=== PATIENT | male | born 1990 | race African-American/Black ===

== ENCOUNTER 2020-04-25 23:57 | Emergency (ER) | payer SELFPAY ==
--- NOTE | ~2020-04-25 | XR_ITS ---
EXAMINATION: XR chest 2V EXAM DATE: 04/26/2020 02:00 INDICATION: Asthma exacerbation. TECHNIQUE: Frontal and lateral projections of the chest obtained and reviewed. There is no prior yuri dy for comparison. FINDINGS: Some hyperinflation. The lungs are clear. There are no pleural effusions. The cardiomedia stinal silhouette is within normal limits. There is no pneumothorax suspected. The bones and soft t issues are unremarkable. IMPRESSION: 1. No acute cardiopulmonary findings. 2. Hyperinflation. Reviewed, dictated and finalized at location A.
--- NOTE | 2020-04-25 23:47 | ED.ASTHMA ---
HPI - Asthma General Chief Complaint: Asthma Stated Complaint: asthma Source: patient and EMS Mode of arrival: EMS Limitations: no limitations History of Present Illness HPI Narrative: Patient is a 30-year-old male with a history of asthma who presents for evaluation of shortness of breath. Patient states he began having an asthma attack while at work this morning. 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 Patient states he has asthma exacerbations every couple of months. He is reporting some mild chest pain when the breathing problems began at work. He denies any nausea, diaphoresis, jaw pain, arm pain. No numbness, no ripping or tearing sensation to the flanks. Pt states he is typically seen at [facility]. He is almost out of his asthma inhaler. Related Data Allergies Allergy/AdvReac Type Severity Reaction Status Date / Time shellfish derived Allergy Anaphylactic Verified 04/26/20 00:02 Shock Review of Systems Review of Systems: Narrative: CONSTITUTIONAL: Denies fever, chills, or sweats. ENT: Denies rhinorrhea, congestion, sore throat, or otalgia. CARDIOVASCULAR: Reports mild chest pain RESPIRATORY: Reports shortness of breath and wheezing GASTROINTESTINAL: Denies abdominal pain, nausea, vomiting, or diarrhea. GENITOURINARY: Denies dysuria or hematuria. SKIN: Denies rash or itching. MUSCULOSKELETAL: Denies back pain, joint pain, or myalgia. NEUROLOGIC: Denies headache, numbness, or weakness. 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 EYES: PERRLA and EOMI. ENT: Nares clear, no rhinorrhea or epistaxis. Mucous membranes moist. NECK: Supple. CHEST: No respiratory distress, patient is fatigued appearing, bilateral inspiratory and expiratory wheezing, no crackles, no use of accessory muscles HEART: Regular rate, sinus rhythm ABDOMEN:Non distended, non tender EXTREMITIES: Normal range of motion. No edema. SKIN: Warm, dry, no rash. NEURO:No focal deficits. Alert and oriented x3 Course Vital Signs Vital signs: Vital Signs Temperature 37.2 C 04/25/20 23:56 Pulse Rate 99 04/25/20 23:56 Respiratory Rate 18 04/25/20 23:56 Blood Pressure 147/109 H 04/25/20 23:56 Pulse Oximetry 96 04/25/20 23:56 Temperature 37.2 C 04/25/20 23:56 Pulse Rate 108 H 04/26/20 04:06 Respiratory Rate 21 H 04/26/20 04:06 Blood Pressure 151/77 H 04/26/20 04:06 Pulse Oximetry 99 04/26/20 04:06 MDM - Asthma MDM Narrative Medical decision making narrative: Patient presented for evaluation of asthma exacerbation with shortness of breath and wheezing. Patient had been given Solu-Medrol and a DuoNeb treatment by EMS prior to arrival was feeling improved at the time of arrival but continued to have inspiratory and expiratory wheezing. No hypoxemia. Given the amount of wheezing present, went ahead and give the patient additional continuous treatment, magnesium as well. Chest x-ray shows no acute cardiopulmonary abnormalities. I did obtain an EKG and 2 troponins because the patient did have some mild chest discomfort with the shortness of breath, but this resolved after his breathing improved, and he had 2 troponins that were stable without elevation. No other anginal type symptoms. Patient had improved vital signs, no hypoxemia. I considered PE but given th
[2020-04-25 23:56] VITALS: BP 147/109; PULSE 99; RESP 18; TEMP 37.2; O2SAT 96
[2020-04-26 00:11] VITALS: PULSE 78; O2SAT 98
--- NOTE | 2020-04-26 00:13 | ECG_ITS ---
Measurements Intervals [place] Rate: 93 P: 69 [place]: 162 QRS: -24 QRSD: 112 T: 48 QT: 392 QTc: 488 Interpretive Statements SINUS RHYTHM INTRAVENTRICULAR CONDUCTION DELAY DELAYED PRECORDIAL R/S TRANSITION MINIMAL Q WAVES- HIGH LATERAL LEADS ST ELEVATION IN DIFFUSE LEADS- CONSIDER PERICARDITIS OR EARLY REPOLARIZATION ABNORMAL ECG Electronically Signed On 04-26-2020 10:07:15 CDT by Kb Boyd D.O.
[2020-04-26] MEDS: MAGNESIUM SULF 2 GM/WATER 50ML 2 GM/50 ML BAG IVPB (00:35)
[2020-04-26 00:36] VITALS: PULSE 89; RESP 22
[2020-04-26] MEDS: SODIUM CHLORIDE 0.9% IV 500 ML 999 ML IV CONT (00:36)
[2020-04-26] MEDS: ALBUTEROL SULFATE NEB 2.5 MG/0.5 ML INH 20 MG INHALATION (00:36)
[2020-04-26] MEDS: IPRATROPIUM BR 0.02% INH SOLN 0.5 MG/2.5 ML VIAL 2 MG INHALATION (00:36)
[2020-04-26 00:42] LABS: Basophils Absolute Auto 0.1 K/mm3 (0.0-0.1); Basophils Percent Auto 1.8 % (0.2-1.2); Eosinophils Absolute Auto 0.5 K/mm3 (0-0.3); Hematocrit 41.2 % (42.0-52.0); Hemoglobin 13.5 g/dL (14.0-18.0); Immature Granulocyte Absolute 0.01 K/mm3 (0.00-0.031); Immature Granulocyte Percent A 0.2 % (0-0.5); Lymphocytes Absolute Auto 1.33 K/mm3 (0.9-3.2); Lymphocytes Percent Auto 22.1 % (18.3-44.2); Mean Corpuscular HGB Conc 32.8 g/dl (32-36); Mean Corpuscular Hemoglobin 31.2 pg (26-34); Mean Corpuscular Volume 95.2 fl (80-100); Mean Platelet Volume 9.7 fl (7.4-10.4); Monocytes Absolute Auto 0.6 K/mm3 (0.1-0.6); Monocytes Percent Auto 10.6 % (2.6-8.5); Neutrophils Absolute Auto 3.4 K/mm3 (1.3-6.7); Neutrophils Percent Auto 56.3 % (45.5-73.1); Platelet Count Result 257 k/mm3 (150-375); Red Blood Count 4.33 M/mm3 (4.6-6.20)
[2020-04-26 00:48] LABS: Prothrombin Time 12.9 Seconds (11.1-14.7)
[2020-04-26 00:56] LABS: Anion Gap 7 mmol/L (8-16); Blood Urea Nitrogen 11 mg/dL (9-20); Calcium 9.1 mg/dL (8.4-10.2); Carbon Dioxide 29 mmol/L (22-30); Chloride 102 mmol/L (98-107); Estimated Glomerular Filt Rate > 60; Glucose 105 mg/dL (75-110); Potassium 4.2 mmol/L (3.4-5.0); Sodium 138 mmol/L (137-145)
[2020-04-26 01:08] LABS: Troponin I 0.015 ng/mL (0.000-0.034)
[2020-04-26 01:35] VITALS: PULSE 90; RESP 18
[2020-04-26 01:42] VITALS: BP 148/91; PULSE 112; RESP 24; O2SAT 94
[2020-04-26 03:34] LABS: Troponin I 0.015 ng/mL (0.000-0.034)
[2020-04-26 04:06] VITALS: BP 151/77; PULSE 108; RESP 21; O2SAT 99
== END 2020-04-26 04:07 | disposition home or self-care (01) ==
PROVIDERS: Emergency Provider Emergency Medicine
DX: J45.901 Unspecified asthma with (acute) exacerbation (principal); R94.31 Abnormal electrocardiogram [ECG] [EKG]
CPT/HCPCS: 36415; 71046; 80048; 84484; 85025; 85610; 85730; 93005; 94640; 96365; 99284; J3475; J7040